=== PATIENT | female | born 1940 | race Caucasian/White ===

== ENCOUNTER 2016-03-12 09:21 | Outpatient (CLI) | payer OTHER, MEDICARE ==
[2016-03-12] MEDS ORDERED: ACETAMINOPHEN 500 MG TAB PO ONE ×2 (10:30→17:00)
[2016-03-12] MEDS ORDERED: IMMUNE GLOBULIN IV ONE (10:30)
[2016-03-12 10:55] VITALS: RESP 18; TEMP 98
[2016-03-12 17:18] VITALS: BP 132/81; PULSE 73; O2SAT 96
== END 2016-03-12 20:05 | disposition home or self-care (01) ==
LOC: FOBOP 09:21 → F1NOP 20:05
PROVIDERS: ATTEND Internal Medicine
PROC: 30233S1 Transfusion of Nonautologous Globulin into Peripheral Vein, Percutaneous Approach (ICD-10-PCS; principal; 2016-03-12)
DX: D80.9 Immunodeficiency with predominantly antibody defects, unspecified (principal)
CPT/HCPCS: 96365; J1459

== ENCOUNTER 2016-04-16 09:43 | Outpatient (CLI) | payer OTHER, MEDICARE ==
[2016-04-16] MEDS ORDERED: IMMUNE GLOBULIN 20 GM/200 ML VIAL IV ONE (11:00)
[2016-04-16 12:08] VITALS: RESP 17; TEMP 98.4
[2016-04-16 18:41] VITALS: BP 112/81; PULSE 72; O2SAT 95
== END 2016-04-16 18:43 | disposition home or self-care (01) ==
LOC: FOBOP 09:43 → F1NOP 18:43
PROVIDERS: ATTEND Internal Medicine
PROC: 30233S1 Transfusion of Nonautologous Globulin into Peripheral Vein, Percutaneous Approach (ICD-10-PCS; principal; 2016-04-16)
DX: D80.3 Selective deficiency of immunoglobulin G [IgG] subclasses (principal)
CPT/HCPCS: 36430; J1459

== ENCOUNTER → 2016-05-18 | Outpatient (CLI) | payer OTHER, MEDICARE ==
[~2016-05-18] MED LIST: ACETAMINOPHEN 325 MG TAB PO ONE; IMMUNE GLOBULIN 20 GM/200 ML VIAL IV ONE; diphenhydrAMINE 25 MG CAP PO ONE
[2016-05-18 15:35] VITALS: O2SAT 95
[2016-05-18 17:53] VITALS: RESP 20
[2016-05-18 18:27] VITALS: BP 130/71; PULSE 72; TEMP 98.2
--- NOTE | 2016-06-14 11:40 | PQFORM ---
PHYSICIAN QUERY FORM Needs Your Response This query form is being sent to you to assure this patient record is coded properly. Please respond to the question below: SCIENTIST/ENGINEER QUESTION: Dr. Cantu, Your patient Dixon Bean has a standing order for IVIG infusion for once a month. 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 Could please clarify the type of immunoglobulin deficicy this patient has? 1. A(IgA) 2. G (IgG)___this one 3. M(IgM) 4. Other Thank you, Citlaly Dove, BALDO, CDIP, B.S. Carry Out Clerk And Shelf Stocker INSTRUCTIONS FOR RESPONSE: Answer question by clicking on the "Edit Document" button. Move cursor to area below the stars. When complete, hit "Save." Click on the "Sign" button, then click "Sign" again. Type in your PIN and hit "Enter." MTDD
== END ==
LOC: F1NOP 09:21
PROVIDERS: ATTEND Internal Medicine
PROC: 3E033GC Introduction of Other Therapeutic Substance into Peripheral Vein, Percutaneous Approach (ICD-10-PCS; principal; 2016-05-18)
DX: D80.3 Selective deficiency of immunoglobulin G [IgG] subclasses (principal)
CPT/HCPCS: 96365; 96366; J1459

== ENCOUNTER 2016-06-22 09:05 | Outpatient (CLI) | payer OTHER, MEDICARE ==
[~2016-06-22 09:05] MED LIST changes: -IMMUNE GLOBULIN 20 GM/200 ML VIAL IV ONE; -diphenhydrAMINE 25 MG CAP PO ONE
[2016-06-22] MEDS ORDERED: IMMUNE GLOBULIN 200 ML IV ONE ×3 (10:00→12:00)
[2016-06-22 10:09] VITALS: RESP 16
[2016-06-22 19:16] VITALS: BP 111/57; PULSE 81; TEMP 98.6; O2SAT 93
== END 2016-06-22 19:55 | disposition home or self-care (01) ==
LOC: F1NOP 09:05
PROVIDERS: ATTEND Internal Medicine
PROC: 30233S1 Transfusion of Nonautologous Globulin into Peripheral Vein, Percutaneous Approach (ICD-10-PCS; principal; 2016-06-22)
DX: D80.9 Immunodeficiency with predominantly antibody defects, unspecified (principal)
CPT/HCPCS: 96365; 96366; J1459

== ENCOUNTER → 2016-07-03 | Outpatient (CLI) | payer OTHER, MEDICARE | LOC: FIMAGING 14:48 | DX: Z12.31 Encounter for screening mammogram for malignant neoplasm of breast (principal); Z80.3 Family history of malignant neoplasm of breast | CPT/HCPCS: G0202 ==

== ENCOUNTER 2016-07-20 09:49 | Outpatient (CLI) | payer OTHER, MEDICARE ==
[2016-07-20] MEDS ORDERED: IMMUNE GLOBULIN 20 GM/200 ML VIAL IV ONE ×2 (10:14→17:00)
[2016-07-20] MEDS ORDERED: ACETAMINOPHEN 500 MG TAB PO ONE ×2 (10:14→16:45)
[2016-07-20 10:53] VITALS: RESP 16
[2016-07-20 17:49] VITALS: BP 124/58; PULSE 75; TEMP 98.5; O2SAT 95
== END 2016-07-20 19:56 | disposition home or self-care (01) ==
LOC: F1NOP 09:49
PROVIDERS: ATTEND Internal Medicine
DX: D80.3 Selective deficiency of immunoglobulin G [IgG] subclasses (principal)
CPT/HCPCS: J1459

== ENCOUNTER → 2016-08-28 | Outpatient (CLI) | payer OTHER, MEDICARE ==
[~2016-08-28] MED LIST changes: -ACETAMINOPHEN 325 MG TAB PO ONE; +ACETAMINOPHEN 325 MG TAB PO SCH; +IMMUNE GLOBULIN 20 GM/200 ML VIAL IV SCH; +diphenhydrAMINE 25 MG CAP PO SCH
[2016-08-28 13:33] VITALS: RESP 16
[2016-08-28 17:36] VITALS: BP 149/70; PULSE 70; TEMP 98.1; O2SAT 94
== END ==
LOC: F1NOP 09:58
PROVIDERS: ATTEND Internal Medicine
PROC: 30233S1 Transfusion of Nonautologous Globulin into Peripheral Vein, Percutaneous Approach (ICD-10-PCS; principal; 2016-08-28)
DX: D80.3 Selective deficiency of immunoglobulin G [IgG] subclasses (principal)
CPT/HCPCS: 96365; 96366; J1459

== ENCOUNTER → 2016-09-25 | Outpatient (CLI) | payer OTHER, MEDICARE ==
[~2016-09-25] MED LIST changes: -ACETAMINOPHEN 325 MG TAB PO SCH; +ACETAMINOPHEN 500 MG TAB PO ONE; +IMMUNE GLOBULIN 20 GM/200 ML VIAL IV ONE; -IMMUNE GLOBULIN 20 GM/200 ML VIAL IV SCH; +diphenhydrAMINE 25 MG CAP PO ONE; -diphenhydrAMINE 25 MG CAP PO SCH
[2016-09-25 13:30] VITALS: RESP 16
[2016-09-25 14:31] VITALS: PULSE 70
[2016-09-25 18:18] VITALS: BP 126/72; TEMP 98; O2SAT 94
== END ==
LOC: F1NOP 10:17
PROVIDERS: ATTEND Internal Medicine
PROC: 3E033GC Introduction of Other Therapeutic Substance into Peripheral Vein, Percutaneous Approach (ICD-10-PCS; principal; 2016-09-25)
DX: D84.9 Immunodeficiency, unspecified (principal)
CPT/HCPCS: 96365; 96366; J1459

== ENCOUNTER 2016-11-06 09:41 | Outpatient (CLI) | payer OTHER, MEDICARE ==
[2016-11-06] MEDS ORDERED: IMMUNE GLOBULIN 20 GM/200 ML VIAL IV ONE (10:25)
[2016-11-06 15:38] VITALS: RESP 16
[2016-11-06 15:52] VITALS: BP 132/77; PULSE 78; TEMP 98.3; O2SAT 93
== END 2016-11-06 16:03 | disposition home or self-care (01) ==
LOC: F1NOP 09:41
PROVIDERS: ATTEND Internal Medicine
PROC: 30233S1 Transfusion of Nonautologous Globulin into Peripheral Vein, Percutaneous Approach (ICD-10-PCS; principal; 2016-11-06)
DX: D80.3 Selective deficiency of immunoglobulin G [IgG] subclasses (principal)
CPT/HCPCS: 96365; 96366; J1459

== ENCOUNTER 2016-12-12 09:26 | Outpatient (CLI) | payer OTHER, MEDICARE ==
[2016-12-12] MEDS ORDERED: ACETAMINOPHEN 500 MG TAB PO ONE (10:06)
[2016-12-12 10:15] VITALS: TEMP 97.9
[2016-12-12] MEDS ORDERED: IMMUNE GLOBULIN 20 GM/200 ML VIAL IV ONE ×3 (11:30→12:00)
[2016-12-12 11:50] VITALS: RESP 17
[2016-12-12 12:37] VITALS: BP 125/68; PULSE 76; O2SAT 93
--- NOTE | 2017-01-02 12:57 | PQFORM ---
PHYSICIAN QUERY FORM Needs Your Response This query form is being sent to you to assure this patient record is coded properly. Please respond to the question below: SHAREPOINT APPLICATION ARCHITECT QUESTION: Dr. Cantu, Your patient Dixon Bean has a standing order for IVIG infusion for once a month. 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 Could please clarify the type of immunoglobulin deficicy this patient has? 1. A(IgA) 2. G (IgG)____THIS 3. M(IgM) 4. Other Thank you, Citlaly Dove, BALDO, CDIP, B.S. Bridge Ironworker Helper INSTRUCTIONS FOR RESPONSE: Answer question by clicking on the "Edit Document" button. Move cursor to area below the stars. When complete, hit "Save." Click on the "Sign" button, then click "Sign" again. Type in your PIN and hit "Enter." MTDD
--- NOTE | 2017-01-02 12:57 | PQFORM ---
PHYSICIAN QUERY FORM Needs Your Response This query form is being sent to you to assure this patient record is coded properly. Please respond to the question below: TYPE MAPPER QUESTION: Dr. Cantu, Your patient Dixon Bean has a standing order for IVIG infusion for once a month. 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 Could please clarify the type of immunoglobulin deficicy this patient has? 1. A(IgA) 2. G (IgG)____THIS 3. M(IgM) 4. Other Thank you, Citlaly Dove, BALDO, CDIP, B.S. Biztalk Administrator INSTRUCTIONS FOR RESPONSE: Answer question by clicking on the "Edit Document" button. Move cursor to area below the stars. When complete, hit "Save." Click on the "Sign" button, then click "Sign" again. Type in your PIN and hit "Enter." MTDD
--- NOTE | 2017-01-02 12:57 | PQFORM ---
PHYSICIAN QUERY FORM Needs Your Response This query form is being sent to you to assure this patient record is coded properly. Please respond to the question below: LAPPING MACHINE SET UP OPERATOR QUESTION: Dr. Cantu, Your patient Dixon Bean has a standing order for IVIG infusion for once a month. 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 Could please clarify the type of immunoglobulin deficicy this patient has? 1. A(IgA) 2. G (IgG)____THIS 3. M(IgM) 4. Other Thank you, Citlaly Dove, BALDO, CDIP, B.S. E Learning Designer INSTRUCTIONS FOR RESPONSE: Answer question by clicking on the "Edit Document" button. Move cursor to area below the stars. When complete, hit "Save." Click on the "Sign" button, then click "Sign" again. Type in your PIN and hit "Enter." MTDD
== END 2016-12-12 16:13 | disposition home or self-care (01) ==
LOC: F1NOP 09:26
PROVIDERS: ATTEND Internal Medicine
PROC: 3E033GC Introduction of Other Therapeutic Substance into Peripheral Vein, Percutaneous Approach (ICD-10-PCS; principal; 2016-12-12)
DX: D80.3 Selective deficiency of immunoglobulin G [IgG] subclasses (principal)
CPT/HCPCS: 96365; 96366; J1459

== ENCOUNTER 2017-07-19 06:31 | Inpatient (IN) | payer OTHER, MEDICARE ==
[2017-07-19] MEDS ORDERED: ACETAMINOPHEN 500 MG TAB PO ONE (06:51)
[2017-07-19] MEDS ORDERED: ceFAZolin 2 GM/SWFI 2 GM/20 ML SYR IVP ONE (06:51)
[2017-07-19] MEDS ORDERED: LR 1,000 ML IV ONE (06:52)
--- NOTE | 2017-07-19 07:27 | PDHPUP ---
History & Physical Update H&P update statement: This history and physical update is based on an assessment of the patient which was completed after admission or registration (within 24 hours), but prior to the surgery/procedure. H&P update: H&P reviewed & patient examined, no change in patient's condition since H&P completed (Consents signed and site marked. All questions answered.)
[2017-07-19] MEDS ORDERED: BUPIVACAINE 0.25% 30 ML SDV ONE ×3 (07:53→08:06)
[2017-07-19] MEDS ORDERED: BACITRACIN 50,000 UNITS/10 ML SYR IRR ONE ×2 (07:54→08:02)
[2017-07-19] MEDS ORDERED: EPINEPHrine 1 MG/ML INJ ONE (07:54)
[2017-07-19] MEDS ORDERED: POVIDONE-IODINE 30 GM OINTTUBE TP ONE (08:01)
[2017-07-19] MEDS ORDERED: THROMBIN (BOVINE) 20,000 UNIT VIAL TP ONE (08:01)
[2017-07-19] MEDS ORDERED: VANCOMYCIN HCL/NORMAL SALINE 250 ML IV ONE (08:04)
[2017-07-19] MEDS: SURGIFLO MATRIX KIT WITH THROMBIN 8 ML TP ONE ×2 (08:10→13:00)
[2017-07-19] MEDS ORDERED: MIDAZOLAM 2 MG/2 ML VIAL ONE (08:11)
[2017-07-19] MEDS ORDERED: MIDAZOLAM 2 MG/2 ML VIAL IVP ONE (08:18)
--- NOTE | 2017-07-19 08:21 | PDANEPAE ---
ANE Past Medical History - Cardiovascular History Hx Hypertension: No Hx Arrhythmias: Yes Hx Chest Pain: No Hx Coronary Artery / Peripheral Vascular Disease: Yes Hx CHF / Valvular Disease: No Hx Palpitations: Yes Cardiovascular History Comment: CAD without interventions. BP RUNS LOW. metoprolol for palpitations/pafib - Pulmonary History Hx COPD: No Hx Asthma/Reactive Airway Disease: No Hx Recent Upper Respiratory Infection: No Hx Oxygen in Use at Home: No Hx Sleep Apnea: Yes Sleep Apnea Screening Result - Last Documented: Positive Pulmonary History Comment: THEO positive - Neurologic History Hx Cerebrovascular Accident: No Hx Seizures: No Hx Dementia: No - Endocrine History Hx Diabetes: No - Renal History Hx Renal Disorders: No - Liver History Hx Hepatic Disorders: No - Neurological & Psychiatric Hx Hx Neurological and Psychiatric Disorders: Yes Neurological / Psychiatric History Comment: DEPRESSION, ANXIETY. OPTIC NEURITIS. MILD ATAXIA. BALANCE ISSUES - Cancer History Hx Cancer: No - Congenital Disorder History Hx Congenital Disorders: No - Other Health History Other Health History: SARCOIDOSIS, OPTIC NEURITIS. THALISEMIA MINOR. PARTIAL UPPER. ANEMIA. BRUISES EASILY/F - Chronic Pain History Chronic Pain: No - Surgical History Prior Surgeries: CARDIAC CATHETERIZATION, TOTAL RIGHT HIP REPLACEMENT ANE Review of Systems Review of Systems: - Exercise capacity METS (RN): 5 METS ANE Patient History - Allergies Allergies/Adverse Reactions: diphenhydramine HCl [From Benadryl] Allergy (Severe, Verified 07/16/17 16:11) VERTIGO cefaclor [From Ceclor] Allergy (Intermediate, Verified 07/16/17 16:11) Hives hydromorphone HCl [From Dilaudid] Allergy (Intermediate, Verified 07/16/17 16:11 ) ITCH iodine Allergy (Intermediate, Verified 07/16/17 16:11) Shortness of breath meperidine HCl [From Demerol] Allergy (Intermediate, Verified 07/16/17 16:11) Hives NSAIDS (Non-Steroidal Anti-Inflamma Allergy (Verified 07/16/17 16:11) History of Ulcers ondansetron [From Zofran (as hydrochloride)] Allergy (Verified 07/12/17 19:23) Severe Headache wheat Allergy (Verified 07/16/17 16:11) DAIRY Allergy (Intermediate, Uncoded 07/16/17 16:11) GI UPSET - Home Medications Home Medications: Acyclovir [Zovirax 200 mg (*)] 200 mg PO BID 07/12/17 [Last Taken 07/18/17 20:00 ] Cholecalciferol Vit D3 [Vitamin D3 (*)] 2,000 units PO DAILY 07/12/17 [Last Taken 07/14/17] Duloxetine HCl [Cymbalta] 20 mg PO DAILY 07/12/17 [Last Taken 07/18/17 06:00] Gabapentin [Neurontin 300 MG (*)] 300 mg PO BID 07/12/17 [Last Taken 07/18/17 20 :00] Herbals/Supplements -Info Only 1 ea PO DAILY 07/12/17 [Last Taken 07/18/17] Hydrocodone/Acetaminophen [Badger 5/325 (*)] 1 tab PO HS 07/12/17 [Last Taken 12/26 22:00] Hydroxychloroquine Sulfate [Plaquenil 200 mg (*)] 200 mg PO BID 07/12/17 [Last Taken 07/18/17 20:00] Immun Glob G(IgG)/Gly/Iga Ov50 [Gammagard Liquid 10%] 20 gm IV Q14D 07/12/17 [ Last Taken 07/01/17] Metoprolol Tartrate [Lopressor 25 mg (*)] 12.5 mg PO BID 07/12/17 [Last Taken 20:00] Thyroid,Pork [Quinton Thyroid] 30 mg PO DAILY 07/12/17 [Last Taken 07/18/17 06:00 ] Zolpidem Tartrate [Ambien 5MG (*)] 5 - 10 mg PO HS PRN 07/12/17 [Last Taken 12/26 20:00] clonazePAM [Klonopin (*)] 0.25 mg PO BID 07/12/17 [Last Taken 07/18/17 20:00] predniSONE 6 mg PO DAILY 07/12/17 [Last Taken 07/18/17 06:00] Denosumab [Prolia] 60 mg SQ Q180D 07/19/17 [Last Taken 3 Months Ago ~04/21/17] Herbals/Supplements -Info Only 07/19/17 [Last Taken 07/14/17] - NPO status NPO Since - Liquids (Date): 07/18/17 NPO Since - Liquids (Time): 22:30 NPO Since - Solids (Date): 07/18/17 NPO Since - Solids (Time): 22:30 - Anes Hx Anes Hx: no prior problems - Smoking Hx Smoking Status: Former smoker - Family Anes Hx Family Hx Anesthesia Complications: NONE ANE Labs/Vital Signs - Vital Signs Blood Pressure: 127/74 Heart Rate: 80 Respiratory Rate: 16 O2 Sat (%): 96 Height: 165.1 cm Weight: 63.503 kg ANE Physical Exam - Airway Neck exam: decreased ROM Mallampati Score: Class 3 Mouth exam: normal dental/mouth exam - Pulmonary Pulmonary: no respiratory distress, inspiratory crackles - Cardiovascular Cardiovascular: regular rate and rhythym, no murmur, rub, or gallop - ASA Status ASA Status: III ANE Anesthesia Plan Anesthesia Plan: general endotracheal anesthesia
[2017-07-19] MEDS ORDERED: fentaNYL 100 MCG/2 ML INJ ONE ×2 (08:29→14:26)
[2017-07-19] MEDS ORDERED: PROPOFOL 200 MG/20 ML VIAL ONE (08:29)
[2017-07-19] MEDS ORDERED: ONDANSETRON 4 MG/2 ML VIAL IVP PRN (08:31)
[2017-07-19] MEDS ORDERED: POLYETHYLENE GLYCOL 3350 17 GM PKT PO PRN (08:31)
[2017-07-19] MEDS ORDERED: MAGNESIUM HYDROXIDE 30 ML UDCUP PO PRN (08:31)
[2017-07-19] MEDS ORDERED: ONDANSETRON DISINTEGRATING 4 MG TAB PO PRN (08:31)
[2017-07-19] MEDS ORDERED: LACTULOSE 20 GM/30 ML UDCUP PO PRN (08:31)
[2017-07-19] MEDS ORDERED: BISACODYL 10 MG SUPP PR PRN (08:31)
--- NOTE | 2017-07-19 08:44 | POSTOPPROG ---
Post Op Note Date of Operation: 07/19/17 Surgeon: Kavon Camacho Hunting Sales Associate: MYKEL Barillas PAC Anesthesia: GET(General Endotracheal) Pre-op Diagnosis: cervical stenosis Post-op Diagnosis: cervical stenosis Indication: cervical stenosis Procedure: C3-6 ACDF, Cervical laminectomy C3-6, PSF C3-6 Inf/Abcess present in the surg proc area at time of surgery?: No EBL: 50-100 Drains: Jeronimo DUMONT Addendum - Addendum .: S: Neck pain O: NAD A&Ox3 MAEx4 5/5 and equal in BUE and BLE A/p 76y/o F s/p C3-6 ACDF, C3-6 PSF -Optimize pain management -PT/OT -DVT prophx: TEDs, SCDs, Lovenox POD3 -JPx1 -Post op xrays pending -Advance diet as tolerated -Please notify NS with any change in neuro/motor exam
[2017-07-19] MEDS ORDERED: NS W/ 20 KCl/L 1,000 ML IV SCH (08:45)
[2017-07-19] MEDS ORDERED: LIDOCAINE 2% 5 ML SDV ONE (08:49)
[2017-07-19] MEDS ORDERED: methylPREDNISolone SOD SUCC 125 MG/2 ML VIAL ONE (08:49)
[2017-07-19] MEDS ORDERED: ROCURONIUM 50 MG/5 ML VIAL ONE (08:49)
[2017-07-19] MEDS ORDERED: PROPOFOL/EMULSION 500 MG/50 ML BOTTLE IV ONE ×2 (09:07→11:37)
[2017-07-19] MEDS ORDERED: SUGAMMADEX SODIUM 200 MG/2 ML VIAL IVP ONE (10:00)
--- NOTE | 2017-07-19 10:44 | PDMN ---
Medical Necessity Medical necessity: [facility] IP only surgery; cpt 70228 Musculoskeletal Surgery ( ACDF C3-C6)
[2017-07-19] MEDS ORDERED: BACITRACIN ZINC 14.2 GM OINTTUBE TP ONE (11:40)
[2017-07-19] MEDS ORDERED: ONDANSETRON 4 MG/2 ML VIAL ONE (13:19)
[2017-07-19] MEDS ORDERED: LR 500 ML IV PRN (13:33)
[2017-07-19] MEDS ORDERED: LABETALOL HCL 5 MG/ML 20 ML MDV IVP PRN (13:33)
[2017-07-19] MEDS ORDERED: NALOXONE HCL 0.4 MG/ML INJ IVP PRN (13:33)
[2017-07-19] MEDS ORDERED: PROMETHAZINE HCL 25 MG/ML INJ IVP PRN ×2 (13:33→17:58)
[2017-07-19] MEDS ORDERED: ALTEPLASE 2 MG VIAL IVP PRN (14:16)
--- NOTE | 2017-07-19 14:27 | POSTANESTH ---
Post Anesthetic Evaluation Cardiovascular Status: Other, See Comment (A little tachycardic on arrival (108) . Labetalol will be given if necessary.) Respiratory Status: Normal, Stable, Similar to Pre-op Cond. Level of Consciousness/Mental Status: Can Participate in Eval, Moderately Sleepy Pain Control: Adequate, Prn Tx Ordered Nausea/Vomiting Control: Adequate, Prn Tx Ordered Complications Possibly Related to Anesthesia: None Noted
[2017-07-19] MEDS ORDERED: DIAZEPAM 5 MG/ML 1 ML SYR ONE (14:29)
[2017-07-19] MEDS: fentaNYL 100 MCG/2 ML INJ IVP PRN ×3 (14:30→16:06)
[2017-07-19] MEDS: DIAZEPAM 5 MG/ML 1 ML SYR IVP PRN ×2 (14:50→15:41)
--- NOTE | 2017-07-19 15:26 | GOP ---
[f rep st] OPERATIVE REPORT DATE OF OPERATION: 07/19/2017 SURGEON: Kavon Camacho MD TREATER: ALEENA Wei ANESTHESIA: General. PREOPERATIVE DIAGNOSIS: 1. C3 through C6 cervical stenosis and spondylosis. 2. Cervicalgia. 3. Radiculopathy. 4. Myelopathy. 5. Treatment refractory to nonoperative interventions. POSTOPERATIVE DIAGNOSIS: 1. C3 through C6 cervical stenosis and spondylosis. 2. Cervicalgia. 3. Radiculopathy. 4. Myelopathy. 5. Treatment refractory to nonoperative interventions. PROCEDURE PERFORMED: Please note this is stage 2 of a planned 2-stage surgical procedure. Stage 1 was an anterior diskectomy fusion C3 through C6 and dictated in a separate operative report. 1. Posterior arthrodesis with approach to C3, C4, C5, and C6. 2. Posterolateral fusion with bilateral lateral mass screw placement at C3, C4 , C5, and C6 from the Knovel system. 3. Decompressive laminectomy with bilateral medial facetectomies, C4-C5, and cranial resection of C6 and caudal aspect of C3 with spinal cord decompression. 4. Posterolateral fusion bilateral between C3 and C6 with morselized autograft and allograft. 5. Use of intraoperative fluoroscopy, less than 1 hour physician time. 6. Use of neuromonitoring. FINDINGS: per imaging COMPLICATIONS: None. SPECIMENS: None. ESTIMATED BLOOD LOSS: 50 mL. INDICATIONS: The patient is a 76-year-old woman who presented with evidence of severe spinal stenosis C3 through C6. After discussion of the risks, benefits, and treatment alternatives, we decided to proceed forth with surgery as described above. Please note that the surgical procedure was originally consented as a C3-C7 posterior fusion with decompression C3 through C6. After the successful completion of stage 1 of the surgical procedure and given her normal C6-C7 disk height I opted to proceed forth with a fusion ending at C6 and eliminated adding the C7 level in order to help maintain some additional movement for the patient. DESCRIPTION OF PROCEDURE: The patient was already asleep at the time of dictation from completion of stage 1 of the procedure. At this point, she was placed in the Morillo archibald device and flipped prone onto the Jeronimo table using spinal precautions. The patient was secured to the table in a tuck position, but otherwise neutral. All bony processes were inspected and padded. The occipital cervical area was prepped and draped in usual sterile surgical fashion. A time-out was completed per protocol. The patient did not receive a re-dosing of antibiotics because she had already received them for stage 1. There was no change on neuromonitoring. The incision was infiltrated with Marcaine with epinephrine. Using a scalpel blade , we took the incision down the midline through the nuchal avascular plane using the monopolar down to the spinous process of C3, C4, C5, and C6. We completed a subperiosteal dissection out to the edges of the lateral masses of C3, C4, C5 and C6. Deep retractors were placed to maintain our exposure. We used the bur tip on the drill and created a trough at the junction of the lamina and lateral mass at C4 and C5 bilaterally and completed a C4-C5 decompressive laminectomy and passed this bone off the field. We then used the bur tip on the drill bit and Kerrison punches to complete a partial resection of the cranial aspect of C6 and the caudal aspect of C3. This eliminated the stenosis between C3 and C6 seen on her MRI scan. At this point I opted not to place the C7 screws given the fact that I was able to preserve the ligament between C6-C7 and her C6-C7 level looked fairly normal on her MRI scan. I then used a bur tip on the drill to place 2 corporation pilot holes for the bilateral lateral mass screws in the C3, C4, C5, and C6 bilaterally. All holes were manually palpated with no evidence of any cortical breaches. We then tapped and placed 12 mm screws in the lateral masses at C3, C4, C5, and C6 with Knovel system. We then completed a 3D Stealth navigation spin with the O-arm. This demonstrated the right C6 screw was 2 mm longer than I wished. I therefore replaced it with a 10 mm screw. At this point, the wound was irrigated copiously with bacitracin irrigation. We decorticated the bone bilaterally between C3 and C6. We placed 2 lordotic rods into the heads of the screws between C3 and C6 and secured them down with cap screws, which were tightened to the hydraulic blocker's setting. We placed morselized autograft and allograft bilaterally between C3 and C6 for the posterolateral fusion. A drain was left in the subfascial space and the wound then closed in multiple layers using Vicryl sutures for the deep layers and Dermabond for the skin. The patient's wounds were dressed sterilely. She was flipped supine onto the transfer cart. She was awakened, extubated, and taken to recovery room in stable condition. There were no complications and no noted changes on neuromonitoring throughout the procedure. /[id number]/MODL MTDD
--- NOTE | 2017-07-19 15:46 | GOP ---
[f rep st] OPERATIVE REPORT DATE OF OPERATION: 07/19/2017 SURGEON: Kavon Camacho MD HAND FLESHER: Rebeka Go PA-C ANESTHESIA: General. PREOPERATIVE DIAGNOSIS: 1. C3 through C6 cervical stenosis with spondylosis. 2. Cervicalgia. 3. Radiculopathy. 4. Myelopathy. POSTOPERATIVE DIAGNOSIS: 1. C3 through C6 cervical stenosis with spondylosis. 2. Cervicalgia. 3. Radiculopathy. 4. Myelopathy. PROCEDURE PERFORMED: Please note the stage 1 of a 2 stage planned surgical procedure. Stage II will be dictated in a separate op report. 1. Anterior arthrodesis with approach to C3, C4, C5, C6. 2. C3-C4 diskectomy with bilateral foraminotomies, osteophytectomies and interbody fusion using a 7 x 14 x 11 mm titanium-coated PEEK cage filled with morselized autograft and allograft. 3. C4-C5 diskectomy with bilateral foraminotomies, osteophytectomies and interbody fusion using a 7 x 14 x 11 mm titanium-coated PEEK cage filled with morselized autograft and allograft. 4. C5-C6 diskectomy with bilateral foraminotomies, osteophytectomies and interbody fusion using a 7 x 14 x 11 mm titanium-coated PEEK cage filled with morselized autograft and allograft. 5. Anterior cervical fusion, C3, C4, C5, and C6 with a Medtronic 55 mm [place] translational plate. 6. Use of intraoperative fluoroscopy, less than 1 hour physician time. 7. Use of neuromonitoring. 8. Use of the operating microscope. COMPLICATIONS: None. FINDINGS: per imaging SPECIMENS: None. ESTIMATED BLOOD LOSS: 50 mL. INDICATIONS: The patient is a 76-year-old woman with a history of a steroid use and osteoporosis, who presents with evidence of severe spinal stenosis, C3 through C6. After discussion of risks, benefits, and treatment alternatives, we decided to proceed forth with surgical intervention as described above. Given the patient's use of steroids for osteoporosis, I decided to proceed forth with a 2-stage surgical procedure to increase her fusion rates. She presents now for that surgical procedure. DESCRIPTION OF PROCEDURE: The patient was brought to the operating theater and underwent general endotracheal anesthesia without complications. She had Venodyne's, LUCIEN hose, and appropriate lines placed by Anesthesia. She was maintained supine on the operating table with her head in slight extension. Using lateral fluoroscopy and a spinal needle, we picked our entry point at C3 through C6 levels. This was marked as a transverse incision on the right side of the neck. This area was prepped and draped in the usual sterile surgical fashion. A time-out was completed per protocol, and the patient received antibiotics within 1 hour of incision. The incision was taken down initially with the scalpel blade and then, using monopolar, taken down through subcutaneous tissues to the level of the platysma. The platysma was over-mined in cranial and caudal directions. A Weitlaner was placed to maintain our exposure. We opened the fibers of the platysma cranially and caudally, and then used blunt and sharp dissection to travel in a plane medial to carotid sheath and lateral to the esophagus and trachea until we reached the prevertebral fascia. We then placed a bayonetted needle in the disk space of C4-C5 and confirmed our level using lateral fluoroscopy. We elevated the longus coli muscle from the anterior vertebral bodies of C3, C4, C5, and C6. Deep retractors were placed to maintain our exposure. The microscope was brought onto the field to assist with microscopic dissection and maintain illumination and magnification. We again confirmed our level using lateral fluoroscopy. We first started at the C3-C4 level, placed [place] pins into C3 and C4, and placed C3-C4 in mild distraction. We completed a C3-C4 diskectomy with bilateral foraminotomies, osteophytectomies, and measured the interbody space. We prepared the cartilaginous endplates and placed a 7 x 14 x 11 mm titanium-coated PEEK cage filled with morselized autograft and allograft into the C3-C4 disk space. We removed the [place] pin, placing it in the C5 and placed C4-C5 in mild distraction. We then completed a C4-C5 diskectomy with bilateral foraminotomies and osteophytectomies. We prepared the cartilaginous endplates and measured interbody space. We then placed a 7 x 14 x 11 mm titanium-coated PEEK cage filled with morselized autograft and allograft into the C4-C5 disk space. We removed the [place] pin from C4 and placed it in C6 and placed C5-C6 mild distraction. We completed a C5-C6 diskectomy with bilateral foraminotomies and osteophytectomies. We prepared the cartilaginous endplates and measured interbody space. We placed a 7 x 14 x 11 mm titanium-coated PEEK cage filled with morselized autograft and allograft in the C5-6 disk space. We removed the [place] pins and removed the anterior osteophytes. We then secured a 55 mm Medtronic [place] translational plate onto the vertebral bodies of C3, C4, C5, and C6. The patient's bone was noted to be soft , consistent with her osteoporosis. AP and lateral x-rays demonstrated good placement of the hardware. The wound was irrigated copiously with bacitracin irrigation, and a drain was left in the subfascial space. The wound was closed in multiple layers using Vicryl sutures to deep layers and Dermabond for the skin. This is completion of stage 1 of a 2-stage surgical procedure. There were no noted changes on neuromonitoring for this portion of the surgery. /[id number]/MODL MTDD
[2017-07-19] MEDS: GABAPENTIN 300 MG CAP PO SCH (16:31)
[2017-07-19] MEDS: FAMOTIDINE 20 MG TAB PO SCH (16:32)
[2017-07-19] MEDS: CHOLECALCIFEROL VIT D3 1,000 UNITS TAB PO SCH (16:32)
[2017-07-19] MEDS: DULoxetine 20 MG CAP PO SCH (16:32)
[2017-07-19] MEDS: clonazePAM 0.5 MG TAB PO SCH (16:33)
[2017-07-19] MEDS: ACETAMINOPHEN 500 MG TAB PO SCH (16:34)
[2017-07-19] MEDS: ACYCLOVIR 200 MG CAP PO SCH (16:34)
[2017-07-19] MEDS: predniSONE 1 MG TAB PO SCH (16:47)
[2017-07-19] MEDS: SENNOSIDES/DOCUSATE SODIUM TAB PO SCH (16:47)
[2017-07-19] MEDS: METOPROLOL TARTRATE 25 MG TAB PO SCH (16:47)
[2017-07-19] MEDS: HYDROXYCHLOROQUINE SULFATE 200 MG TAB PO SCH (16:47)
[2017-07-19] MEDS: Thyroid,Pork [Armour Thyroid] 30 MG PO SCH (16:47)
[2017-07-19] MEDS ORDERED: ACETAMINOPHEN 650 MG SUPP PR PRN (21:25)
[2017-07-19] MEDS ORDERED: GABAPENTIN 300 MG CAP PO SCH (22:00)
[2017-07-20] MEDS: clonazePAM 0.5 MG TAB PO SCH ×3 (00:37→21:11)
[2017-07-20] MEDS: ACYCLOVIR 200 MG CAP PO SCH ×3 (00:37→21:10)
[2017-07-20] MEDS: FAMOTIDINE 20 MG TAB PO SCH ×2 (00:37→12:49)
[2017-07-20] MEDS: HYDROXYCHLOROQUINE SULFATE 200 MG TAB PO SCH ×3 (00:37→21:12)
[2017-07-20] MEDS: SENNOSIDES/DOCUSATE SODIUM TAB PO SCH ×3 (00:38→21:17)
[2017-07-20] MEDS: METOPROLOL TARTRATE 25 MG TAB PO SCH ×2 (00:38→12:43)
[2017-07-20] MEDS: ACETAMINOPHEN 500 MG TAB PO SCH ×4 (00:39→21:09)
[2017-07-20] MEDS: METHOCARBAMOL 1,000 MG in NS 50 ML IV SCH ×2 (00:39→06:37)
[2017-07-20] MEDS: LR 1,000 ML IV SCH ×2 (01:18→14:42)
[2017-07-20] MEDS: GABAPENTIN 250 MG/5 ML 30 ML BOTTLE PO SCH ×4 (02:25→21:12)
[2017-07-20] MEDS: DIAZEPAM 5 MG/ML 1 ML SYR IVP PRN ×3 (06:11→19:58)
[2017-07-20] MEDS: GABAPENTIN 300 MG CAP PO SCH (07:28)
[2017-07-20] MEDS ORDERED: METOCLOPRAMIDE 10 MG/10 ML UDL PO PRN (08:54)
[2017-07-20] MEDS: METOCLOPRAMIDE 10 MG/2 ML VIAL IVP PRN (09:02)
--- NOTE | 2017-07-20 09:36 | NEUSURGPN ---
Assessment/Plan: A/p 76y/o F s/p C3-6 ACDF, C3-6 PSF POD#1 -Optimize pain management - difficult to find balance between good pain control and oversedation. pt not swallowing well yet. PAINTING SUPERVISOR to see this am. IV meds ordered as well. -PT/OT/PAINTING SUPERVISOR -Encourage PO intake with applesauce etc -Polar care ice pack -DVT prophx: TEDs, SCDs, Lovenox POD3 -JPx2 - continue -Post op xrays pending -Advance diet as tolerated -Please notify NS with any change in neuro/motor exam -D/w Dr Camacho this am, as well as pharmacist and RN Subjective: Pt resting in bed, states she is feeling nauseated off and on. Posterior neck pain. Didnt have a good experience with night RN. Improved sensation in RUE. Objective: AAOx3 NAD VSS MAEx4 Motor 5/5 BUE C collar on - adjusted JPx2 Dressings cdi +LT Urinary Catheter in Place: Yes Urinary Catheter Indication: Surgical Requirement - Physician Discussed Patient with Dr.: Camacho Neurosurgery Physical Exam - Vitals, I&O, Labs I and O 07/19/17 07/20/17 07/21/17 05:59 05:59 05:59 Intake Total 600 Output Total 655 Balance -55 Weight 63.503 kg Intake: IV Intake (ml) 600 Output: Urine (ml) 550 Catheter 550 BLAINE Drain Output (ml) 105 Anterior Neck 45 Posterior Neck 60 Other: Number of Voids Catheter 1 Vital Signs Temp Pulse Resp BP Pulse Ox 37.9 C 90 16 144/75 H 94 07/20/17 07:25 07/20/17 07:25 07/20/17 07:25 07/20/17 07:25 07/20/17 07:25 ICD10 Worksheet Patient Problems: Problems 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
[2017-07-20] MEDS: methylPREDNISolone SOD SUCC 125 MG/2 ML VIAL IVP SCH (09:38)
[2017-07-20] MEDS: FAMOTIDINE 20 MG/NACL 50 ML IV SCH ×2 (09:54→21:09)
[2017-07-20] MEDS: CHOLECALCIFEROL VIT D3 1,000 UNITS TAB PO SCH (12:41)
[2017-07-20] MEDS: DULoxetine 20 MG CAP PO SCH (12:42)
[2017-07-20] MEDS: predniSONE 1 MG TAB PO SCH (12:43)
[2017-07-20] MEDS: Thyroid,Pork [Armour Thyroid] 30 MG PO SCH (12:44)
--- NOTE | 2017-07-20 17:18 | ASMTCMCOM ---
CM Note CM Note Notes: 07/20/2017 Case Management Note Pt admitted for cervical stenosis and arm weakness. Discussed dispo plan with pt. Pt requested referrals to [facility]. PT is recommending Inpatient Rehab. Left VM with Rehana. Pt prefers inpatient rehab, she has a previous stay after hip surgery. Case Management d/c poc: to be determined. Case Management to follow. Case Management d/c poc: to be determined. Date Signed: 07/20/2017 05:17 PM Electronically Signed By:Rose Reyes RN
[2017-07-20] MEDS: METOPROLOL TARTRATE 5 MG/5 ML INJ IVP SCH (21:15)
[2017-07-21] MEDS: DIAZEPAM 5 MG/ML 1 ML SYR IVP PRN (02:05)
[2017-07-21] MEDS: ACETAMINOPHEN 500 MG TAB PO SCH ×3 (05:30→21:45)
[2017-07-21] MEDS: LR 1,000 ML IV SCH (05:52)
[2017-07-21] MEDS ORDERED: morphINE 10 MG/0.5 ML UDSYR PO PRN (09:10)
[2017-07-21] MEDS ORDERED: ALTEPLASE 2 MG VIAL IVP PRN (09:12)
[2017-07-21] MEDS: METOCLOPRAMIDE 10 MG/2 ML VIAL IVP PRN (09:44)
--- NOTE | 2017-07-21 09:46 | CPEKG ---
Heart Rate: 85 RR Interval: 706 P-R Interval: 160 QRSD Interval: 84 QT Interval: 360 QTC Interval: 428 P Wilson: 53 QRS Wilson: 7 T Wave Wilson: 16 EKG Severity - NORMAL ECG - EKG Impression: SINUS RHYTHM Electronically Signed By: Steven Vasquez 22-Jul-2017 08:54:32
[2017-07-21] MEDS: ACYCLOVIR 200 MG CAP PO SCH ×2 (10:09→21:49)
[2017-07-21] MEDS: CHOLECALCIFEROL VIT D3 1,000 UNITS TAB PO SCH (10:09)
[2017-07-21] MEDS: clonazePAM 0.5 MG TAB PO SCH ×2 (10:09→21:00)
[2017-07-21] MEDS: HYDROXYCHLOROQUINE SULFATE 200 MG TAB PO SCH ×2 (10:09→21:30)
[2017-07-21] MEDS: GABAPENTIN 250 MG/5 ML 30 ML BOTTLE PO SCH ×3 (10:09→21:45)
[2017-07-21] MEDS: DULoxetine 20 MG CAP PO SCH (10:09)
[2017-07-21] MEDS: Thyroid,Pork [Armour Thyroid] 30 MG PO SCH (10:10)
[2017-07-21] MEDS: predniSONE 1 MG TAB PO SCH (10:10)
[2017-07-21] MEDS: SENNOSIDES/DOCUSATE SODIUM TAB PO SCH ×2 (10:10→21:42)
[2017-07-21] MEDS: FAMOTIDINE 20 MG/NACL 50 ML IV SCH ×2 (10:19→20:56)
[2017-07-21] MEDS: methylPREDNISolone SOD SUCC 125 MG/2 ML VIAL IVP SCH (10:20)
[2017-07-21] MEDS: METOPROLOL TARTRATE 5 MG/5 ML INJ IVP SCH ×2 (10:20→21:10)
--- NOTE | 2017-07-21 10:37 | NEUSURGPN ---
Assessment/Plan: A/p 76y/o F s/p C3-6 ACDF, C3-6 PSF POD#1 -Optimize pain management - difficult to find balance between good pain control and oversedation. pt not swallowing well yet. COURTESY DRIVER to see again this am. IV meds ordered as well. 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 EKG done appears WNL upon my review. Report pending -Encourage PO intake with applesauce etc -Polar care ice pack -DVT prophx: TEDs, SCDs, Lovenox POD3 -JPx2 - continue both drains per Dr Camacho. Likely pull anterior BLAINE saturday -Post op xrays show stable hardware -Advance diet as tolerated -Please notify NS with any change in neuro/motor exam -D/w Dr Camacho this am, as well as pharmacist and RN Subjective: Pt resting in bed, states her chest pain got better after reglan. States after trying ice cubes they just won't go down past uvula. Understands need for PICC as she is not tolerating PO meds and her IV is questionable right now. Objective: AAOx3 NAD VSS MAEx4 Motor 5/5 BUE C collar on Incisions dressed cdi JPx2 +LT Urinary Catheter in Place: No - Physician Discussed Patient with : [facility] Physical Exam - Vitals, I&O, Labs I and O 07/20/17 07/21/17 07/22/17 05:59 05:59 05:59 Intake Total 600 Output Total 655 2245 450 Balance -55 -2245 -450 Weight 63.503 kg 63.503 kg Intake: IV Intake (ml) 600 Output: Urine (ml) 550 2050 450 Bedside Commode 800 450 Catheter 550 1250 BLAINE Drain Output (ml) 105 195 Anterior Neck 45 75 Posterior Neck 60 120 Other: Number of Voids Bedside Commode 2 3 Catheter 1 1 Vital Signs Temp Pulse Resp BP Pulse Ox 37.4 C 93 16 140/85 H 95 07/21/17 08:00 07/21/17 10:20 07/21/17 08:00 07/21/17 10:20 07/21/17 09:17 ICD10 Worksheet Patient Problems: Problems 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
[2017-07-21 15:41] LABS: CREATINE KINASE 139 IU/L (0-156)
[2017-07-22] MEDS: ACETAMINOPHEN 500 MG TAB PO SCH ×3 (04:39→20:55)
[2017-07-22] MEDS: oxyCODONE IR 5 MG TAB PO PRN ×3 (06:33→21:15)
[2017-07-22] MEDS: HYDROXYCHLOROQUINE SULFATE 200 MG TAB PO SCH ×2 (09:23→21:14)
[2017-07-22] MEDS: SENNOSIDES/DOCUSATE SODIUM TAB PO SCH ×2 (09:23→21:36)
[2017-07-22] MEDS: clonazePAM 0.5 MG TAB PO SCH ×2 (09:23→21:11)
[2017-07-22] MEDS: ENOXAPARIN 40 MG/0.4 ML SYR SC SCH (09:23)
[2017-07-22] MEDS: THYROID 60 MG TAB PO SCH (09:24)
[2017-07-22] MEDS: DULoxetine 20 MG CAP PO SCH (09:24)
[2017-07-22] MEDS: ACYCLOVIR 200 MG CAP PO SCH ×2 (09:24→21:14)
--- NOTE | 2017-07-22 09:24 | NEUSURGPN ---
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 Camacho and myself Subjective: right thumb numbness, overall arm numbness improved since surgery. swallowing improving Objective: NAD A&Ox3 MAEx4 5/5 and equal in BUE and BLE. Incision c/d/i - Physician Patient Seen by : Janice [facility] Physical Exam - Vitals, I&O, Labs I and O 07/21/17 07/22/17 07/23/17 05:59 05:59 05:59 Intake Total 778 Output Total 2245 2330 Balance -2245 -1552 Weight 63.503 kg Intake: IV Infused (ml) 778 Famotidine 20 mg/NaCl 50 100 ml @ 200 mls/hr IV Q12 ALIE Rx#:[id number] Lr 1,000 ml @ 75 mls/hr 678 IV CONT ALIE Rx#: [id number] Output: Urine (ml) 2050 2250 Bedside Commode 800 950 Catheter 1250 Toilet 1300 BLAINE Drain Output (ml) 195 80 Anterior Neck 75 10 Posterior Neck 120 70 Other: Intake Quantity Yes Sufficient Number of Voids Bedside Commode 2 1 Catheter 1 Toilet 1 Vital Signs Temp Pulse Resp BP Pulse Ox 37.5 C 89 16 152/83 H 94 07/22/17 07:46 07/22/17 07:46 07/22/17 07:46 07/22/17 07:46 07/22/17 07:46 ICD10 Worksheet Patient Problems: Problems 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
[2017-07-22] MEDS: predniSONE 1 MG TAB PO SCH (09:25)
[2017-07-22] MEDS: CHOLECALCIFEROL VIT D3 1,000 UNITS TAB PO SCH (09:25)
[2017-07-22] MEDS: GABAPENTIN 250 MG/5 ML 30 ML BOTTLE PO SCH ×3 (10:30→21:29)
[2017-07-22] MEDS: METOPROLOL TARTRATE 5 MG/5 ML INJ IVP SCH ×2 (10:39→21:37)
[2017-07-22] MEDS: FAMOTIDINE 20 MG TAB PO SCH ×2 (10:40→21:15)
[2017-07-22] MEDS: FAMOTIDINE 20 MG/NACL 50 ML IV SCH (10:49)
--- NOTE | 2017-07-22 14:49 | ASMTCMCOM ---
CM Note CM Note Notes: Rehana from Inpatient Rehab says that patient does not meet criteria for admission and recommends SNF. I spoke with patient, and she is leaning toward. [facility]. I also sent referrals to [facility] (no bed) and [facility] (pending). Possible discharge tomorrow. Case Management will follow. Date Signed: 07/22/2017 02:49 PM Electronically Signed By:oCrrie Jerome RN
[2017-07-22] MEDS: DIAZEPAM 5 MG TAB PO PRN (14:59)
[2017-07-23] MEDS: DIAZEPAM 5 MG TAB PO PRN ×2 (04:02→10:41)
[2017-07-23] MEDS: oxyCODONE IR 5 MG TAB PO PRN ×2 (04:02→08:19)
[2017-07-23] MEDS: ACETAMINOPHEN 500 MG TAB PO SCH ×2 (06:21→13:23)
[2017-07-23] MEDS: ENOXAPARIN 40 MG/0.4 ML SYR SC SCH (08:17)
[2017-07-23] MEDS: HYDROXYCHLOROQUINE SULFATE 200 MG TAB PO SCH (08:18)
[2017-07-23] MEDS: ACYCLOVIR 200 MG CAP PO SCH (08:18)
[2017-07-23] MEDS: clonazePAM 0.5 MG TAB PO SCH (08:18)
[2017-07-23] MEDS: SENNOSIDES/DOCUSATE SODIUM TAB PO SCH (08:18)
[2017-07-23] MEDS: FAMOTIDINE 20 MG TAB PO SCH (08:19)
[2017-07-23] MEDS: CHOLECALCIFEROL VIT D3 1,000 UNITS TAB PO SCH (08:19)
[2017-07-23] MEDS: predniSONE 1 MG TAB PO SCH (08:19)
--- NOTE | 2017-07-23 09:50 | NEUSURGPN ---
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 Camacho and myself Subjective: posterior neck pain Objective: NAD A&Ox3 MAEx4 5/5 and equal in BUE and BLE. Incision c.d.i - Physician Discussed Patient with : Janice [facility]surgery Physical Exam - Vitals, I&O, Labs I and O 07/22/17 07/23/17 07/24/17 05:59 05:59 05:59 Intake Total 778 Output Total 2330 535 Balance -1552 -535 Intake: IV Infused (ml) 778 Famotidine 20 mg/NaCl 50 100 ml @ 200 mls/hr IV Q12 ALIE Rx#:[id number] Lr 1,000 ml @ 75 mls/hr 678 IV CONT ALIE Rx#: [id number] Output: Urine (ml) 2250 500 Bedside Commode 950 Toilet 1300 500 BLAINE Drain Output (ml) 80 35 Anterior Neck 10 5 Posterior Neck 70 30 Other: Intake Quantity Yes Yes Sufficient Number of Voids Bedside Commode 1 Toilet 1 1 Vital Signs Temp Pulse Resp BP Pulse Ox 37.2 C 98 16 117/81 H 96 07/23/17 08:00 07/23/17 08:00 07/23/17 08:00 07/23/17 08:00 07/23/17 08:00 ICD10 Worksheet Patient Problems: Problems 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
[2017-07-23] MEDS ORDERED: oxyCODONE IR 5 MG TAB PO PRN (09:53)
[2017-07-23] MEDS ORDERED: METOPROLOL TARTRATE 25 MG TAB PO SCH (10:15)
[2017-07-23] MEDS: HYDROCODONE/APAP 5/325 TAB PO PRN ×2 (10:30→16:50)
[2017-07-23] MEDS: THYROID 60 MG TAB PO SCH (10:31)
[2017-07-23] MEDS: GABAPENTIN 250 MG/5 ML 30 ML BOTTLE PO SCH (11:42)
[2017-07-23] MEDS: DULoxetine 20 MG CAP PO SCH (11:50)
[2017-07-23 16:13] VITALS: BP 120/72
[2017-07-23] MEDS: METOPROLOL TARTRATE 5 MG/5 ML INJ IVP SCH (16:20)
--- NOTE | 2017-07-23 16:36 | PDIAF ---
- Diagnosis Code Status: Full Code - Medication Management Discharge Medications: Medications to Continue on Transfer Acyclovir [Zovirax 200 mg (*)] 200 mg PO BID 07/12/17 [Last Taken 07/18/17 20:00 ] Cholecalciferol Vit D3 [Vitamin D3 (*)] 2,000 units PO DAILY 07/12/17 [Last Taken 07/14/17] Duloxetine HCl [Cymbalta] 20 mg PO DAILY 07/12/17 [Last Taken 07/18/17 06:00] Gabapentin [Neurontin 300 MG (*)] 300 mg PO BID 07/12/17 [Last Taken 07/18/17 20 :00] Herbals/Supplements -Info Only 1 ea PO DAILY 07/12/17 [Last Taken 07/18/17] Hydroxychloroquine Sulfate [Plaquenil 200 mg (*)] 200 mg PO BID 07/12/17 [Last Taken 07/18/17 20:00] Immun Glob G(IgG)/Gly/Iga Ov50 [Gammagard Liquid 10%] 20 gm IV Q14D 07/12/17 [ Last Taken 07/01/17] Metoprolol Tartrate [Lopressor 25 mg (*)] 12.5 mg PO BID 07/12/17 [Last Taken 20:00] Thyroid,Pork [[place] Thyroid] 30 mg PO DAILY 07/12/17 [Last Taken 07/18/17 06:00 ] clonazePAM [Klonopin (*)] 0.25 mg PO BID 07/12/17 [Last Taken 07/18/17 20:00] predniSONE 6 mg PO DAILY 07/12/17 [Last Taken 07/18/17 06:00] Denosumab [Prolia] 60 mg SQ Q180D 07/19/17 [Last Taken 3 Months Ago ~04/21/17] Acetaminophen [Tylenol ES 500 mg (*)] 1,000 mg PO Q8HRS tab 07/23/17 [Last Taken Unknown] Diazepam [Valium 5 MG (*)] 5 mg PO Q6HRS PRN #60 tab 07/23/17 [Last Taken Unknown] Hydrocodone/APAP 5/325 [[place] 5/325 (*)] 1 - 2 tab PO Q4 PRN tab 07/23/17 [ Last Taken Unknown] Sennosides/Docusate Sodium [Senokot-S] 1 - 2 tab PO BID tab 07/23/17 [Last Taken Unknown] oxyCODONE IR [Oxycodone Ir (*)] 5 - 15 mg PO Q4HRS PRN #60 tab 07/23/17 [Last Taken Unknown] Discharge Medications: Refer to the Discharge Home Medication list for PRN reason. - Orders Services needed: Certified Hot Saw Operator, Physical Therapy, Occupational Therapy Isolation Type: None Diet Recommendation: no restrictions on diet Diet Texture: Dysphagia 2 - Mechanically Altered - Chopped, Ground, Thin Liquids , Meds Crushed in Puree - Follow Up Care Current Providers and Referrals: Mati Cantu MD [Primary Care Provider] -
--- NOTE | 2017-07-23 17:16 | ASMTCMCOM ---
CM Note CM Note Notes: Pt medically stable for d/c to [facility]. Orders sent in [employer]. NIALL Nickerson to call report. Debo with [facility] scheduled transport for 17:30, [facility] will send a stretcher and bill [facility] for van. Date Signed: 07/23/2017 04:44 PM Electronically Signed By:OPAL Griffin
--- NOTE | 2017-07-24 13:42 | ASDISCHSUM ---
Discharge Information Plan Status:SNF Medically Cleared to Leave: Discharge Date:07/23/2017 05:35 PM CM D/C [facility] ADT D/C Disposition[facility] Projected Discharge Date:07/24/2017 11:00 AM Transportation at D/C:ALS/BLS Discharge Delay Reason: Follow-Up Date:07/24/2017 11:00 AM Discharge Slot: Final Diagnosis: Placement Information Referral Type:*[facility]/SNF Referral ID:[id number] Provider Name:Dolores Rivera Address 1:[address] Phone Number: Address 2: Fax Number: City:[place] Selection Factors: State:[place] Patient Contact Information Contact Name:LIAMNAJMALuther Relationship:Friend Address: Work Phone: City: [facility] Phone: [facility] Code: Email: Financial Information Financial Class:Medicare Primary Plan Desc:MEDICARE INPATIENT Primary Plan Number:[id number] Secondary Plan Desc:[employer]/MDR SUPPLEMENT Secondary Plan Number:[id number] Assessment Information [facility] CM Progress Note CM Note CM Note Notes: 07/20/2017 Case Management Note Pt admitted for cervical stenosis and arm weakness. Discussed dispo plan with pt. [facility]. PT is recommending Inpatient Rehab. Left VM with Rehana. Pt prefers inpatient rehab, she has a previous stay after hip surgery. Case Management d/c poc: to be determined. Case Management to follow. Case Management d/c poc: to be determined. Date Signed: 07/20/2017 05:17 PM Electronically Signed By:Rose Reyes RN [facility] CM Progress Note CM Note CM Note Notes: Rehana from Inpatient Rehab says that patient does not meet criteria for admission and recommends SNF. I spoke with patient, and she [facility]. I also sent referrals to [facility] (no bed) and [facility] (pending). Possible discharge tomorrow. Case Management will follow. Date Signed: 07/22/2017 02:49 PM Electronically Signed By:Corrie Jerome RN [facility] CM Progress Note CM Note CM Note Notes: Pt medically stable for d/c to [facility]. Orders sent in [employer]. NIALL Nickerson to call report. Edmondson with [facility] scheduled transport for 17:30, [facility] will send a stretcher and bill [facility] for van. Date Signed: 07/23/2017 04:44 PM Electronically Signed By:OPAL Griffin Intervention Information
== END 2017-07-23 17:35 | DRG 454 ==
LOC: F3N 06:31
PROVIDERS: ADMIT Neurological Surgery; ATTEND Neurological Surgery
DX: M47.12 Other spondylosis with myelopathy, cervical region (principal); M47.22 Other spondylosis with radiculopathy, cervical region; M50.00 Cervical disc disorder with myelopathy, unspecified cervical region; M50.10 Cervical disc disorder with radiculopathy, unspecified cervical region; M48.02 Spinal stenosis, cervical region; D86.9 Sarcoidosis, unspecified; M81.0 Age-related osteoporosis without current pathological fracture; H46.9 Unspecified optic neuritis
CPT/HCPCS: 92526-GN; 92610-GN; 97116-GP; 97161-GP; 97165-GO; 97530-GO; 97530-GP; 97535-GO; C1713; G8978-GP-CK; G8979-GP-CJ; G8987-GO-CK; G8988-GO-CI; G8996-GN-CI; G8997-GN-CL; J0171; J1650; J2250; J2270; J2405; J2550; J2704; J2765; J2800; J2930; J3010; J3360; J3370; J7512

== ENCOUNTER → 2017-08-26 | Outpatient (CLI) | payer OTHER, MEDICARE | LOC: FIMAGING 12:37 | PROVIDERS: ATTEND Physician Assistant | DX: Z09 Encounter for follow-up examination after completed treatment for conditions other than malignant neoplasm (principal); Z98.1 Arthrodesis status; M48.02 Spinal stenosis, cervical region ==

== ENCOUNTER → 2017-10-23 | Outpatient (CLI) | payer OTHER, MEDICARE | DX: Z98.1 Arthrodesis status (principal); R53.1 Weakness ==

== ENCOUNTER → 2017-12-26 | Outpatient (CLI) | payer OTHER, MEDICARE | LOC: FIMAGING 12:20 | PROVIDERS: ATTEND Internal Medicine | DX: Z12.31 Encounter for screening mammogram for malignant neoplasm of breast (principal) ==

== ENCOUNTER → 2018-01-13 | Outpatient (CLI) | payer OTHER, MEDICARE | LOC: FIMAGING 13:01 | PROVIDERS: ATTEND Physician Assistant | DX: M48.02 Spinal stenosis, cervical region (principal); R53.1 Weakness; Z98.1 Arthrodesis status ==

== ENCOUNTER → 2018-03-13 | Outpatient (CLI) | payer OTHER, MEDICARE | LOC: BMCIMAGING 13:15 | PROVIDERS: ATTEND Allergy & Immunology Allergy | DX: J98.09 Other diseases of bronchus, not elsewhere classified (principal) ==

== ENCOUNTER → 2018-06-04 | Outpatient (CLI) | payer OTHER, MEDICARE | LOC: FIMAGING 16:11 | PROVIDERS: ATTEND Internal Medicine | DX: M48.02 Spinal stenosis, cervical region (principal); R53.1 Weakness; Z98.1 Arthrodesis status ==

== ENCOUNTER → 2018-07-29 | Outpatient (CLI) | payer OTHER, MEDICARE ==
[~2018-07-29] MED LIST changes: -ACETAMINOPHEN 500 MG TAB PO ONE; -IMMUNE GLOBULIN 20 GM/200 ML VIAL IV ONE; +IOPAMIDOL (ISOVUE 370) 100 ML BTL IV ONE; -diphenhydrAMINE 25 MG CAP PO ONE
== END ==
LOC: FIMAGING 13:54
PROVIDERS: ATTEND Internal Medicine
DX: H53.9 Unspecified visual disturbance (principal)
CPT/HCPCS: 70450; 70496; Q9967; 82565-PO

== ENCOUNTER → 2018-07-30 | Outpatient (CLI) | payer OTHER, MEDICARE | LOC: FIMAGING 15:02 | PROVIDERS: ATTEND Internal Medicine | DX: H53.9 Unspecified visual disturbance (principal); R51 Headache; M48.00 Spinal stenosis, site unspecified | CPT/HCPCS: 70551-PN ==

== ENCOUNTER 2018-08-21 14:11 | Emergency (ER) | payer OTHER, MEDICARE | END 2018-08-21 16:32 | disposition home or self-care (01) ==

== ENCOUNTER 2018-08-30 12:25 | Inpatient (IN) | payer OTHER, MEDICARE | END 2018-09-02 11:09 | disposition home or self-care (01) | LOC: F3N 18:10 ==